=== PATIENT | male | born 1950 | race Caucasian/White ===

== ENCOUNTER 2019-03-23 14:59 | Emergency (ER) | payer MEDICARE, OTHER ==
[2019-03-23] MEDS ORDERED: LIDOCAINE 2% 10 ML MDV SUBQ STA (15:09)
--- NOTE | 2019-03-23 15:18 | ED Physician Documentation ---
History of Present Illness - Stated complaint Stated Complaint: FINGER INJURY - History obtained from History obtained from: Patient, EMS - History of Present Illness Timing: How many hours ago (1) Pain level max: 8 Pain level now: 4 - Additonal information Additional information: right handed male, laceration to the L index finger with chop saw. Td UTD/ nothing makes it better or worse Review of Systems Constitutional: denies: Fever, Chills GI: denies: Vomiting Skin: denies: Rash Musculoskeletal: denies: Neck pain, Back pain Neurologic: denies: Headache PD PAST MEDICAL HISTORY - Present Medications Home Medications: Ambulatory Orders Medication Instructions Recorded Confirmed Aspirin 81 mg PO DAILY 03/23/19 03/23/19 Atorvastatin [Lipitor] 10 mg PO DAILY 03/23/19 03/23/19 Cephalexin [Keflex] 500 mg PO Q6H #28 capsule 03/23/19 Clopidogrel [Plavix] 75 mg PO DAILY 03/23/19 03/23/19 Lisinopril [Prinivil] 5 mg PO DAILY 03/23/19 03/23/19 Oxycodone HCl/Acetaminophen 1 - 2 each PO Q6H PRN #14 tablet 03/23/19 [Percocet 5-325 mg Tablet] - Allergies Allergies/Adverse Reactions: Allergies Allergy/AdvReac Type Severity Reaction Status Date / Time No Known Drug Allergies Allergy Verified 03/23/19 21:58 - Living Situation Living Arrangement: reports: At home - Social History Does the pt have substance abuse?: No - Family History Family history: reports: Non contributory PD ED PE NORMAL - Vitals Vital signs reviewed: Yes - General General: Alert and oriented X 3, No acute distress - HEENT HEENT: Moist mucous membranes - Neck Neck: Supple, no meningeal sign - Cardiac Cardiac: RRR - Respiratory Respiratory: No respiratory distress, Clear bilaterally - Abdomen Abdomen: Soft, Non tender, Non distended - Derm Derm: Warm and dry - Extremities Extremities: Other (L index finger, amputation just distal to the DIP joint. NVI.) - Neuro Neuro: Alert and oriented X 3 - Psych Psych: Normal mood, Normal affect Results - Vitals Vitals: Vital Signs - 24 hr 03/23/19 03/23/19 15:03 16:55 Temperature 36.5 C 36.6 C Heart Rate 62 58 L Respiratory 18 18 Rate Blood Pressure 146/84 H 139/88 H O2 Saturation 99 99 Oxygen O2 Source Room air - Rads (name of study) Left hand x-ray Radiology: Prelim report reviewed, EMP read contemporaneously, See rad report (Status post amputation at mid distal phalanx of left second digit with amputation stump. No articular extension. No radiopaque foreign body. ) PD MEDICAL DECISION MAKING - ED course Complexity details: reviewed results, re-evaluated patient, considered differential, d/w patient, d/w family, d/w jury consultant ED course: 69-year-old male with a distal left fingertip amputation through the mid distal phalanx. Dr. Renteria, orthopedics was consulted and came and evaluated the patient. Elected to treat with open treatment. Gelfoam applied as well as Kerlix. Will place on Keflex. We will follow-up closely with orthopedics for wound checks. Pain well controlled. Tetanus shot given. Patient counseled regarding signs and symptoms for which I believe and urgent re-evaluation would be necessary. Patient with good understanding of and agreement to plan and is comfortable going home at this time This document was made in part using voice recognition software. While efforts are made to proofread this document, sound alike and grammatical errors may occur. Departure - Departure Disposition: 01 Home, Self Care Clinical Impression: Fingertip amputation Qualifiers: Encounter type: initial encounter Qualified Code(s): S68.119A - Complete traumatic metacarpophalangeal amputation of unspecified finger, initial encounter Condition: Good Instructions: ED Laceration Amputation Finger Tip Open Tx Follow-Up: Mario Villarreal MD [Provider Admit Priv/Credential] - Maggi Davis MD [Provider Admit Priv/Credential] - Within 3 Days Prescriptions: Cephalexin [Keflex] 500 mg PO Q6H #28 capsule Oxycodone HCl/Acetaminophen [Percocet 5-325 mg Tablet] 1 - 2 each PO Q6H PRN #14 tablet PRN Reason: pain Comments: Return if you worsen. You can change the dressing daily. Return for redness, swelling, or drainage from the wound. Do not drink alcohol or drive while on narcotic pain medicine. Note that many narcotic pain relievers also contain tylenol/acetaminophen. Please ensure that your total dose of acetaminophen from all sources does not exceed 3 grams (3000mg) per day. You may constipated on this medication, take a stool softener such as "Colace" twice a day while you are on it. Also recommend a yhkh-sob-tezynqj laxative such as senna or MiraLAX any day that you do not have a bowel movement. If you received narcotic pain medication in the emergency department, do not drive or operate machinery for the next 24 hours. Discharge Date/Time: 03/23/19 16:57
--- NOTE | 2019-03-23 15:45 | XRAY Report ---
Reason: finger amputation, chop saw Procedure Date: 03/23/2019 Accession Number: [id number] / [id number] Procedure: XR - Finger(s) LT CPT Code: FULL RESULT: EXAM: LEFT SECOND DIGIT RADIOGRAPHY EXAM DATE: 03/23/2019 03:35 PM. CLINICAL HISTORY: Finger amputation, chop saw. COMPARISON: None. TECHNIQUE: 3 views. FINDINGS: Bones: Status post amputation at the mid distal phalanx of left second digit, with amputation stump noted. No articular extension. No radiopaque foreign bodies. Joints: Normal. No subluxations. Soft Tissues: Normal. No soft tissue swelling. IMPRESSION: Status post amputation at mid distal phalanx of left second digit with amputation stump. No articular extension. No radiopaque foreign body. RADIA
[2019-03-23] MEDS ORDERED: cephALEXin 250 MG CAPSULE PO STA (16:24)
[2019-03-23] MEDS ORDERED: oxyCODONE 5 MG TABLET PO STA (16:33)
--- NOTE | 2019-03-23 16:35 | CONSULTATION NOTE ---
DATE OF SERVICE: 03/23/2019 Physician: Saman Renteria MD ORTHOPEDIC EMERGENCY ROOM NOTE REFERRING PHYSICIAN: Dr. Cannon of the Emergency Room Department. CHIEF COMPLAINT: "I cut my left index fingertip off with a saw." HISTORY OF PRESENT ILLNESS: Patient is a 69-year-old, right-hand dominant, male, visiting [facility] who was apparently cutting some wood with a miter saw and amputated the very tip of hi s left nondominant index finger earlier today. He came to the emergency room for an evaluation. No prior fingertip injuries. No other injuries was noted. PHYSICAL EXAMINATION: Showed the tip of his finger was amputated off just distal to the base of his fingernail. It was somewhat transverse in its orientation. Rest of the finger looked viable. Had a ctive flexion and extension of the DIP joint of the finger. IMAGING: X-rays were taken and shows a fingertip amputation of the digit. ASSESSMENT: Fingertip amputation of left nondominant index finger - on inspection, there was no expo sed bone. PLAN: The patient will have his wound washed and have a sterile dressing applied to the finger. We will allow this fingertip to granulate in and epithelialized. We will cover him with antibiotics for 5-7 days. Will follow up in the [facility]opedic [facility] in about 1 week's time for wound check prior to h is departure and return back to [facility]. TD: 03/23/2019 16:27
[2019-03-23 16:56] VITALS: BP 139/88
== END 2019-03-23 16:57 | disposition home or self-care (01) ==
LOC: ED 14:59
DX: S68.611A Complete traumatic transphalangeal amputation of left index finger, initial encounter (principal); W31.2XXA Contact with powered woodworking and forming machines, initial encounter; Y93.89 Activity, other specified; Z23 Encounter for immunization
CPT/HCPCS: 73140; 99283; 99284

== ENCOUNTER 2019-03-23 21:47 | Emergency (ER) | payer MEDICARE ==
[2019-03-23 21:59] VITALS: BP 160/90
--- NOTE | 2019-03-23 22:13 | ED Physician Documentation ---
PD HPI UPPER EXT INJURY - Stated complaint Stated Complaint: LT FINGER LAC - Chief complaint Chief Complaint: Laceration - History obtained from History obtained from: Patient - History of Present Illness Location: Left, Finger (index) Pain level max: 4 Pain level now: 3 Improved by: Rest Worsened by: Moving, Palpating Associated symptoms: No: Weakness, Numbness, Tingling Contributing factors: Anticoagulated - Additonal information Additional information: Patient seen here earlier today for tip amputation of the left index finger. Seen by orthopedics. Dressing was applied with Gelfoam. He is on Plavix and aspirin for a stroke 15 years ago. States that he is still having bleeding tonight. Review of Systems Constitutional: denies: Fever, Chills GI: denies: Vomiting, Diarrhea PD PAST MEDICAL HISTORY - Past Medical History Cardiovascular: Hypertension, High cholesterol Respiratory: None Neuro: CVA Endocrine/Autoimmune: None GI: None : None HEENT: None Psych: None Musculoskeletal: None Derm: None - Past Surgical History Past Surgical History: No - Present Medications Home Medications: Ambulatory Orders Medication Instructions Recorded Confirmed Aspirin 81 mg PO DAILY 03/23/19 03/23/19 Atorvastatin [Lipitor] 10 mg PO DAILY 03/23/19 03/23/19 Cephalexin [Keflex] 500 mg PO Q6H #28 capsule 03/23/19 Clopidogrel [Plavix] 75 mg PO DAILY 03/23/19 03/23/19 Lisinopril [Prinivil] 5 mg PO DAILY 03/23/19 03/23/19 Oxycodone HCl/Acetaminophen 1 - 2 each PO Q6H PRN #14 tablet 03/23/19 [Percocet 5-325 mg Tablet] - Allergies Allergies/Adverse Reactions: Allergies Allergy/AdvReac Type Severity Reaction Status Date / Time No Known Drug Allergies Allergy Verified 03/23/19 21:58 - Social History Does the pt smoke?: No Smoking Status: Never smoker Does the pt drink ETOH?: No Does the pt have substance abuse?: No - Immunizations Immunizations are current?: Yes - POLST Patient has POLST: No PD ED PE NORMAL - Vitals Vital signs reviewed: Yes - General General: Alert and oriented X 3, No acute distress - HEENT HEENT: Moist mucous membranes - Derm Derm: Warm and dry - Extremities Extremities: Other (Left index finger distal tip amputation) - Neuro Neuro: Alert and oriented X 3 Results - Vitals Vitals: Vital Signs - 24 hr 03/23/19 21:54 Temperature 36.4 C L Heart Rate 68 Respiratory 18 Rate Blood Pressure 160/90 H O2 Saturation 98 Oxygen O2 Source Room air PD MEDICAL DECISION MAKING - ED course Complexity details: considered differential, d/w patient ED course: The wound was uncovered, Gelfoam removed. TXA be placed topically on the wound and then Surgicel placed over this. Kerlix again applied to the wound. We will follow-up closely with orthopedics for further care. Patient counseled regarding signs and symptoms for which I believe and urgent re-evaluation would be necessary. Patient with good understanding of and agreement to plan and is comfortable going home at this time This document was made in part using voice recognition software. While efforts are made to proofread this document, sound alike and grammatical errors may occur. Departure - Departure Disposition: 01 Home, Self Care Clinical Impression: Fingertip amputation Qualifiers: Encounter type: initial encounter Qualified Code(s): S68.119A - Complete traumatic metacarpophalangeal amputation of unspecified finger, initial encounter Condition: Good Instructions: ED Laceration Amputation Finger Tip Open Tx Follow-Up: [facility] [Provider Group] - Within 3 Days Comments: Continue the medications as previously prescribed. Return if you worsen. Return especially for redness, swelling or drainage from the wound Discharge Date/Time: 03/23/19 22:53
[2019-03-23] MEDS ORDERED: TRANEXAMIC ACID 1,000 MG/10 ML VIAL NAS STA (22:28)
== END 2019-03-23 22:53 | disposition home or self-care (01) ==
LOC: ED 21:47
DX: S68.611A Complete traumatic transphalangeal amputation of left index finger, initial encounter (principal); W31.2XXA Contact with powered woodworking and forming machines, initial encounter; Y93.89 Activity, other specified; I10 Essential (primary) hypertension; Z86.73 Personal history of transient ischemic attack (TIA), and cerebral infarction without residual deficits; Z79.02 Long term (current) use of antithrombotics/antiplatelets; Z79.82 Long term (current) use of aspirin
CPT/HCPCS: 73140; 99283; 99284; A9270